=== PATIENT | female | born 1985 | race African-American/Black ===

== ENCOUNTER 2020-09-10 02:35 | Emergency (ER) | payer SELFPAY ==
[~2020-09-10] VITALS: Ht 162.6 cm; Wt 61.0 kg
[2020-09-10 04:16] LABS: CLARITY URINE TURBID (CLEAR); COLOR URINE ORANGE (YELLOW); KETONES URINE NEGATIVE (NEGATIVE); LEUKOCYTE ESTERASE URINE 3+ (NEGATIVE); NITRITE URINE NEGATIVE (NEGATIVE); OCCULT BLOOD URINE 3+ (NEGATIVE); PROTEIN URINE 3+ (NEGATIVE)
[2020-09-10 04:42] VITALS: BP 126/70
== END 2020-09-10 04:44 | disposition home or self-care (01) ==
LOC: ER 02:35
DX: N39.0 Urinary tract infection, site not specified (principal)
CPT/HCPCS: 81003; 81025; 99283